=== PATIENT | female | born 1950 | race Caucasian/White ===

== ENCOUNTER → 2019-07-22 | Outpatient (CLI) | payer MEDICARE, OTHER ==
[~2019-07-22] MED LIST: AZIT-21 PO; BUPR-168 PO; CALC-80 PO; CARV12.53 PO; CEPH500C PO; CETI10TA17 PO; DILT180C PO; HYDR1TAB PO; LVT.05T PO; MELO-195 PO; MULT-608 PO; TERB250T42 PO; TRIA1CAP PO; VLS80C PO
[2019-07-22 10:54] LABS: ALBUMIN 4.3 GM/DL (3.2-4.5); BILIRUBIN,TOTAL 0.4 MG/DL (0.1-1.0); CALCIUM 9.9 MG/DL (8.5-10.1); CREATININE SERUM 0.96 MG/DL (0.60-1.30); POTASSIUM 4.4 MMOL/L (3.6-5.0); TOTAL PROTEIN 7.2 GM/DL (6.4-8.2)
== END ==
LOC: LAB FS 09:53
PROVIDERS: ATTEND Family Medicine
DX: I10 Essential (primary) hypertension (principal)
CPT/HCPCS: 36415; 80053; 80061

== ENCOUNTER 2019-08-01 18:56 | Emergency (ER) | payer MEDICARE, OTHER ==
[~2019-08-01] VITALS: Ht 154.9 cm; Wt 78.1 kg
--- OUTSIDE RECORDS SUMMARY | 2019-08-01 19:01 | XMS REPORT | Continuity of Care Document ---
Author Organization Unknown Address Unknown Phone Unavailable Allergies Active Description Code Type Severity Reaction Onset Reported/Identified Relationship to Patient Clinical Status Yes acetaminophen [id number] João g Allergy Unknown N/A 05/27/2010 Yes oxycodone HCl [id number] João g Allergy Unknown N/A 05/27/2010 Medications There is no data. Problems Date Dx Coded Attending Type Code Diagnosis Diagnosed By 07/26/2019 BOOKER TAO, JANINE Stapleton Ot I10 ESSENTIAL (PRIMARY) HYPERTENSION Procedures There is no data. Results Test Result Range TSH - 07/16/18 08:45 TSH 1.61 mIU/L 0.40-4.50 Encounters ACCT No. Visit Date/Time Discharge Status Pt. Type Provider Facility Loc./Unit Complaint [id number] 07/03/2019 13:30:00 07/03/2019 23:59: 59 [facility] [id number] 07/16/2018 08:15:00 Document Registration [id number] 07/22/2019 09:53:00 020 23:59:59 CLS Outpatient JANINE CELESTE MD [facility] LAB FS ESSENTIAL HTN
--- OUTSIDE RECORDS SUMMARY | 2019-08-01 19:01 | XMS REPORT ---
Author Author Josiane CELESTE Organization [facility] Address [address] [place] [address] Care Team Providers Care Pipe Finisher Name Role Phone CELESTENICOLETTE MckenzieJANINE Unavailable PROBLEMS Type Condition ICD9-CM Code IZW85-GY Code Onset Dates Condition S tatus SNOMED Code Problem Ulnar tunnel syndrome 354.2 Apr, 0 795809120 Problem Osteoarthritis of right knee M17.11 Dec, 0 0 236721285 Problem Ulnar tunnel syndrome G56.20 Apr, 0 636321589 Problem Osteoporosis 733.00 0 8686693 6 Problem Osteoarthritis of left knee M17.12 Dec, 0 487583654 Problem Hyponatremia E87.1 Jan, 0 8962 7008 Problem Osteoporosis M81.0 0 7119979 6 Problem Hypothyroidism E03.9 0 77188 008 Problem Hyponatremia 276.1 Jan, 0 8962 7008 Problem Essential hypertension I10 0 44109054 Problem Carpal tunnel syndrome 354.0 Apr, 0 76833967 Problem Carpal tunnel syndrome G56.00 Apr, 0 84788426 Problem Osteoarthritis of right knee 715.96 Dec, 0 0 494733030 Problem Osteoarthritis of left knee 715.96 Dec, 0 581616588 Problem Essential hypertension 401.9 0 60887479 Problem Hypothyroidism 244.9 0 57362 008 ALLERGIES Substance Reaction Event Type Date Status antibiotic ointment Unknown Non Drug Allergy Apr, Acti ve ENCOUNTERS Encounter Location Date Diagnosis [address] [address] June, [address] [address] Apr, Acute laryngitis J04.0 [facility] [address] [facility] [id number] [address] [address] Jan, [facility] [address] [facility] [id number] [address] [place] [address] Jan, [facility] [address] [facility] [id number] [address] [place] [address] Jan, [facility] [address] [facility] [id number] [address] [place] [address] Dec, [facility] [address] [facility] [id number] [address] [place] [address] Sep, IMMUNIZATIONS Vaccine Route Administration Date Status DEXAMETHASONE 4MG/ML (PER 1 MG) IM Intramuscular April 10, 2018 Administered DEPO MEDROL 80 MG/ML Unknown April 10, 2018 Administere d SOCIAL HISTORY Never Assessed REASON FOR VISIT Sore throat PLAN OF CARE VITAL SIGNS Height 172 in 2018-04-10 Weight 61.5 lbs 2018-04-10 Temperature 98.0 degrees Fahrenheit 2018-04-10 Heart Rate 85 bpm 2018-04-10 Oximetry 96 % 2018-04-10 BMI 1.46 kg/m2 2018-04-10 Blood pressure systolic 132 mmHg 2018-04-10 Blood pressure diastolic 70 mmHg 2018-04-10 MEDICATIONS Medication Instructions Dosage Frequency Start Date End Date Duration S tatus Prilosec Active Curcumin 95 500 MG as directed A ctive Alendronate Sodium 70 MG 1 tablet 30 day (s) Active Multivitamin - as directed Activ e Amoxicillin 875 MG Orally every 12 hrs 1 tablet 12h Apr, 10 day(s) Active Calcium 600 MG Orally Twice a day 1 tablet with meals 12h 30 day(s) Active Lutein 10 MG Orally Once a day 1 tablet with a meal 24h 30 day(s) Active Losartan Potassium 50 MG Orally Once a day 1 tablet 24h 30 day(s) Active Carvedilol 12.5 MG as directed A ctive ZyrTEC Active RESULTS No Results PROCEDURES Procedure Date Ordered Result Body Site DEPO MEDROL 80 MG/ML April 10, 2018 THER/PROPH/DIAG INJ, SC/IM April 10, 2018 DEXAMETHASONE 4MG/ML (PER 1 MG) April 10, 2018 [facility] VISIT ESTABLISHED PATIENT April 10, 2018 INSTRUCTIONS MEDICATIONS ADMINISTERED No Known Medications
--- OUTSIDE RECORDS SUMMARY | 2019-08-01 19:01 | XMS REPORT ---
Author Author Josiane CELESTE Organization [facility] Address [address] [place] [address] Care Team Providers Care Credit Office Manager Name Role Phone CELESTENICOLETTE MckenzieJANINE Unavailable PROBLEMS Type Condition ICD9-CM Code VWY78-NN Code Onset Dates Condition S tatus SNOMED Code Problem Ulnar tunnel syndrome 354.2 17 Apr, 2014 Activ e [id number] Problem Osteoarthritis of right knee M17.11 03 Dec, 201 0 Active 480235191 Problem Ulnar tunnel syndrome G56.20 17 Apr, 2014 Activ e 460299558 Problem Osteoarthritis of right knee 715.96 Dec, 0 Active 269294826 Problem Osteoarthritis of left knee M17.12 Dec, Active 820973799 Problem Hyponatremia 276.1 Jan, Active 8962 7008 Problem Carpal tunnel syndrome 354.0 Apr, Acti ve 39785389 Problem Osteoporosis 733.00 Active 2347949 6 Problem Essential (primary) hypertension I10 Active 82462381 Problem Essential hypertension 401.9 Active 59138697 Problem Seasonal affective disorder F33.8 Ac tive 082009823 Problem Osteoarthritis of left knee 715.96 Dec, Active 194962657 Problem Carpal tunnel syndrome G56.00 Apr, Acti ve 13596917 Problem Essential hypertension I10 Active 75289726 Problem Hyponatremia E87.1 Jan, Active 8962 7008 Problem Osteoporosis M81.0 Active 2169740 6 ALLERGIES No Information ENCOUNTERS Encounter Location Date Diagnosis [address] [place] [address] Feb, [address] [place] [address] Jan, Seasonal affective disorder F33.8 ; Irritant contact dermatitis, unspecified trigger L24.9 and Encounter for immunization Z23 [address] [place] [address] Jan, [facility] [place] [address] [place] [address] Oct, Viral warts, unspecified typ e B07.9 [facility] [address] [place] [address] Sep, Screening mammogram, encount er [facility] Z12.31 [facility] [address] [place] [address] Sep, [facility] [address] [place] [address] Aug, [facility] [address] [place] [address] Jul, [facility] [place] [address] [place] [address] Jul, Essential hypertension I10 ; Hypothyroidism E03.9 ; Osteoporosis M81.0 and [facility] [address] [place] [address] Jul, [facility] [place] [address] [place] [address] Jul, Hypothyroidism, unspecified E03.9 and Essential (primary) hypertension I10 [facility] [place] [address] [place] [address] Jul, Essential (primary) hyperten pantera I10 and Hypothyroidism, unspecified E03.9 [facility] [address] [place] [address] June, [facility] [address] [place] [address] June, Non-recurrent acute suppurat carol otitis media of right ear without spontaneous rupture of tympanic membrane H66.001 and Acute nasopharyngitis J00 [facility] [address] [place] [address] Apr, [address] [place] [address] Apr, Acute laryngitis J04.0 [facility] [address] [id number] [place] [address] Jan, [facility] [address] [id number] [place] [address] Jan, [facility] [id number] [place] [address] Jan, [facility] [address] [id number] [place] [address] Dec, [facility] [address] [id number] [place] [address] Sep, IMMUNIZATIONS No Known Immunizations SOCIAL HISTORY Never Assessed REASON FOR VISIT PLAN OF CARE VITAL SIGNS MEDICATIONS Medication Instructions Dosage Frequency Start Date End Date Duration S tatus Carvedilol 12.5 MG Orally 2 times a day 1 tablet 12h 90 days Active RESULTS No Results PROCEDURES No Known procedures INSTRUCTIONS MEDICATIONS ADMINISTERED No Known Medications MEDICAL (GENERAL) HISTORY Type Description Date Medical History hypertension Medical History cardiac arrhythmia Medical History osteoarthritis Medical History Mammo 2017 Medical History Colon. 09/08/2015 Medical History PCV 13 12/26/17
--- NOTE | 2019-08-01 19:23 | Diagnostic Imaging Report ---
INDICATION: Fall. Left ankle pain. History of recent foot surgery. FINDINGS: 3 views. Ankle mortise is in good alignment. Articulating surfaces are smooth. There are no fractures about the ankle. There is noted K-wire in the 1st metatarsal and bone screws in the 2nd metatarsal. IMPRESSION: No acute bony changes of the ankle. Dictated by: Dictated on workstation # [id number]
--- NOTE | 2019-08-01 19:24 | ED Lower Extremity ---
General Chief Complaint: Lower Extremity Stated Complaint: FALL,ANKLE PAIN Nursing Triage Note: FELL IN DRIVEWAY THEN 30 MIN. TO AN HOUR LATER STARTED HAVING PAIN. Nursing Sepsis Screen: No Definite Risk Exam Limitations: no limitations History of Present Illness Date Seen by Provider: Aug 01, 2019 Time Seen by Provider: 19:00 Initial Comments Patient is a 68-year-old female who presents with left ankle pain after slipping several hours prior to ED arrival. Patient denies ankle pain but states throughout the afternoon pain gradually progressed. Patient reports pain with weightbearing. No deformity or swelling noted on exam. Patient does have localized pain over medial malleolus. Patient also has abrasions to the left hand, right elbow and forehead. Denies loss of consciousness, headache or feeling days. Patient is not on anticoagulation therapy no neck pain. Last known tetanus is unknown but believed to be greater than 10 years. Onset: this morning Pain/Injury Location: left ankle Method of Injury: fell, twisted Modifying Factors: Improves With Immobilization Allergies and Home Medications Allergies Coded Allergies: Acetaminophen (Unverified Allergy, 05/27/10) oxycodone HCl (Unverified Allergy, 05/27/10) Home Medications Azithromycin 250 Mg Tab, 0 PO Z-LUIS ENRIQUE, (Reported) Bupropion Hcl 75 Mg Tab, 75 MG PO DAILY, (Reported) Calcium Carbonate/Vitamin D3 1 Each Tablet, 1 EACH PO BID, (Reported) Carvedilol 12.5 Mg Tablet, 1 EACH PO DAILY, (Reported) Cephalexin Monohydrate 500 Mg Capsule, 1 EACH PO TID, (Reported) Cetirizine Hcl 10 Mg Tablet, 10 MG PO DAILY, (Reported) Diltiazem Hcl 180 Mg Cap.sr.24h, 1 EACH PO DAILY, (Reported) Hydrocodone Bit/Acetaminophen 1 Each Tablet, 1-2 EACH PO Q4HR PRN, (Reported) Levothyroxine Sodium 50 Mcg Tablet, 1 EACH PO DAILY, (Reported) Meloxicam 15 Mg Tablet, 1 EACH PO DAILY, (Reported) Multivitamins 1 Tab Tablet, 1 TAB PO DAILY, (Reported) Terbinafine Hcl 250 Mg Tablet, 1 TAB PO DAILY, (Reported) Triamterene/Hctz 1 Each Capsule, 1 EACH PO DAILY, (Reported) Valsartan 80 Mg Tab, 160 MG PO DAILY, (Reported) Patient Home Medication List Home Medication List Reviewed: Yes Review of Systems Constitutional: see HPI EENTM: see HPI Respiratory: see HPI Cardiovascular: see HPI Genitourinary: see HPI Musculoskeletal: see HPI Skin: see HPI Past Lkyfaxh-Igtnsc-Rftsit Hx Patient Social History Recent Foreign Travel: No Contact w/Someone Who Travel: No Recent Infectious Disease Expo: No Recent Hopitalizations: No Physical Abuse: No Sexual Abuse: No Mistreated: No Fear: No Seasonal Allergies Seasonal Allergies: No Past Medical History Surgeries: Yes (KNEES, RIGHT SHOULDER AND FEET) Respiratory: No Cardiac: Yes Hypertension Neurological: No Reproductive Disorders: No Sexually Transmitted Disease: No HIV/AIDS: No Genitourinary: No Gastrointestinal: No Musculoskeletal: No Endocrine: No HEENT: No Cancer: No Psychosocial: No Blood Disorders: No Physical Exam Vital Signs Vital Signs - First Documented 08/01/19 19:00 Temp 36.3 Pulse 84 Resp 18 B/P (MAP) 149/89 (109) Pulse Ox 97 O2 Delivery Room Air Capillary Refill : Less Than 3 Seconds Height, Weight, BMI Height: '" Weight: lbs. oz. kg; 32.00 BMI Method: General Appearance: WD/WN, no apparent distress HEENT: PERRL/EOMI, normal ENT inspection, pharynx normal, other (left forehead, punctate laceration, wound edges approximated, wound is clear.) Neck: full range of motion, supple, normal inspection Cardiovascular: regular rate, rhythm Respiratory: chest non-tender Back: normal inspection Ankles: left ankle limited range of motion, left ankle soft tissue tenderness, left ankle swelling Neurologic/Tendon: normal sensation Neurologic/Psychiatric: stump blower II-XII nml as tested, no motor/sensory deficits, oriented x 3 Skin: other (abrasions to left hand, right elbow without bony tenderness try bruising or swelling.) Progress/Results/Core Measures Results/Orders My Orders Orders - AGUILA MENENDEZ DO Ankle 3 View Left (08/01/19 19:03) Dipht,Pertuss(Acell),Tet Adult (Boostrix (08/01/19 19:30) Vital Signs/I&O 08/01/19 19:00 Temp 36.3 Pulse 84 Resp 18 B/P (MAP) 149/89 (109) Pulse Ox 97 O2 Delivery Room Air Blood Pressure Mean: 109 Departure Impression Primary Impression: Left ankle sprain Disposition: 01 HOME, SELF-CARE Condition: Stable Departure-Patient Inst. Referrals: JANINE CELESTE MD (PCP/Family) Primary Care Physician Patient Instructions: Ankle Sprain Add. Discharge Instructions: Please wear ankle brace and use crutches or walker as needed for assistance with ambulation. Take Tylenol for pain and tramadol as needed for additional relief. Follow-up with your PCP for reevaluation in 3-5 days if ankles pain persists. All discharge instructions reviewed with patient and/or family. Voiced understanding. Scripts Tramadol HCl (Tramadol HCl) 50 Mg Tablet 50 MG PO Q6H PRN for PAIN for 3 Days, #14 TAB 0 Refills Prov: AGUILA MENENDEZ DO 08/01/19 AGUILA MENENDEZ DO Aug 01, 2019 19:24
[2019-08-01] MEDS ORDERED: TETANUS,DIPTH,PERTUSS P/F (BOOSTRIX) 0.5 ML VIAL IM ONE (19:30)
[2019-08-01] MEDS ORDERED: TRM50T PO (19:31)
[2019-08-01 19:39] VITALS: BP 149/89
== END 2019-08-01 19:36 | disposition home or self-care (01) ==
LOC: EDUNIT# 18:56 → ER FS 18:57
DX: S93.402A Sprain of unspecified ligament of left ankle, initial encounter (principal); S01.81XA Laceration without foreign body of other part of head, initial encounter; S50.311A Abrasion of right elbow, initial encounter; S60.512A Abrasion of left hand, initial encounter; I10 Essential (primary) hypertension; Z88.6 Allergy status to analgesic agent; Z23 Encounter for immunization; Z88.5 Allergy status to narcotic agent; W01.0XXA Fall on same level from slipping, tripping and stumbling without subsequent striking against object, initial encounter; X50.1XXA Overexertion from prolonged static or awkward postures, initial encounter
CPT/HCPCS: 29515; 73610; 99284; L4350; 90715

== ENCOUNTER 2019-12-22 17:10 | Emergency (ER) | payer MEDICARE, OTHER ==
[~2019-12-22] VITALS: Ht 154.9 cm; Wt 75.3 kg
[~2019-12-22 17:10] MED LIST changes: +TRM50T PO
--- NOTE | 2019-12-22 17:34 | ED Fall/Injury ---
General Chief Complaint: Upper Extremity Stated Complaint: FALL Source: patient Exam Limitations: no limitations History of Present Illness Date Seen by Provider: Dec 22, 2019 Time Seen by Provider: 17:15 Initial Comments Patient is a 69-year-old female who presents to the emergency room today after a mechanical trip and fall. Patient states that she was walking her dog when she bent over to olive picker a branch in her driveway, the dog took off and yanked her forward and she fell onto her face, right hand and injured her left shoulder. Patient states that she knocked out 2 of her teeth. She has pain in the left shoulder with difficulty with range of motion both active and passive. She also has pain in the right hand middle finger with significant ecchymosis and swelling over the metacarpophalangeal joint. She is right-hand dominant. She denies any head injury/loss of consciousness. She has some pain in her mouth in both her upper and lower lip. Denies any chest pain denies shortness of breath. Denies abdominal pain. Denies any lower extremity discomfort or pain. All other review of systems reviewed and negative except as stated above. Occurred: this afternoon Severity: moderate Injuries/Pain Location: face, upper extremity Context: tripped Loss of Consciousness: no loss of consciousness Associated Symptoms (Fall): Denies Symptoms Allergies and Home Medications Allergies Coded Allergies: No Known Drug Allergies (Unverified , 12/22/19) Home Medications Azithromycin 250 Mg Tab, 0 PO Z-LUIS ENRIQUE, (Reported) Bupropion Hcl 75 Mg Tab, 75 MG PO DAILY, (Reported) Calcium Carbonate/Vitamin D3 1 Each Tablet, 1 EACH PO BID, (Reported) Carvedilol 12.5 Mg Tablet, 1 EACH PO DAILY, (Reported) Cephalexin Monohydrate 500 Mg Capsule, 1 EACH PO TID, (Reported) Cetirizine Hcl 10 Mg Tablet, 10 MG PO DAILY, (Reported) Diltiazem Hcl 180 Mg Cap.sr.24h, 1 EACH PO DAILY, (Reported) Hydrocodone Bit/Acetaminophen 1 Each Tablet, 1-2 EACH PO Q4HR PRN, (Reported) Hydrocodone/Acetaminophen 1 Each Tablet, 1 EACH PO Q6H PRN for PAIN-MODERATE (5- 7) Prescribed by: OTONIEL HUITRON on 12/22/191933 Levothyroxine Sodium 50 Mcg Tablet, 1 EACH PO DAILY, (Reported) Meloxicam 15 Mg Tablet, 1 EACH PO DAILY, (Reported) Multivitamins 1 Tab Tablet, 1 TAB PO DAILY, (Reported) Terbinafine Hcl 250 Mg Tablet, 1 TAB PO DAILY, (Reported) Tramadol HCl 50 Mg Tablet, 50 MG PO Q6H PRN for PAIN Prescribed by: AGUILA MENENDEZ on 08/01/191930 Triamterene/Hctz 1 Each Capsule, 1 EACH PO DAILY, (Reported) Valsartan 80 Mg Tab, 160 MG PO DAILY, (Reported) Patient Home Medication List Home Medication List Reviewed: Yes Review of Systems Review of Systems Constitutional: no symptoms reported Eyes: No Symptoms Reported Ears, Nose, Mouth, Throat: nose pain, mouth swelling, loose teeth Respiratory: no symptoms reported Cardiovascular: no symptoms reported Gastrointestinal: no symptoms reported Genitourinary: no symptoms reported Musculoskeletal: joint pain (Right hand, left shoulder) Skin: other (Abrasions to the face) All Other Systems Reviewed Negative Unless Noted: Yes Past Softyds-Qlorvz-Ipvkac Hx Patient Social History Alcohol Use: Denies Use Recreational Drug Use: No Smoking Status: Never a Smoker 2nd Hand Smoke Exposure: No Recent Foreign Travel: No Contact w/Someone Who Travel: No Recent Hopitalizations: No Physical Abuse: No Sexual Abuse: No Mistreated: No Fear: No Seasonal Allergies Seasonal Allergies: No Past Medical History Surgeries: Yes (Bilat TKR, RIGHT SHOULDER AND FEET) Orthopedic Respiratory: No Cardiac: Yes Hypertension Neurological: No Reproductive Disorders: No Sexually Transmitted Disease: No HIV/AIDS: No Genitourinary: No Gastrointestinal: No Musculoskeletal: No Endocrine: No HEENT: No Cancer: No Psychosocial: No Integumentary: No Blood Disorders: No Physical Exam Vital Signs Vital Signs - First Documented 12/22/19 17:20 Temp 36.4 Pulse 86 Resp 18 B/P (MAP) 184/94 (124) Pulse Ox 97 O2 Delivery Room Air Capillary Refill : Height, Weight, BMI Height: '" Weight: lbs. oz. kg; 32.00 BMI Method: General Appearance: WD/WN, no apparent distress HEENT: PERRL/EOMI, TMs normal, other (Patient has an abrasion over the bridge of her nose where her glasses sit, she has significant contusion and ecchymosis of her top lip as well as her bottom lip directly in the center of both. She has traumatic avulsion of her left central incisor and left lateral incisor. She has a fracture of the right central incisor. No discrete lacerations of the mouth) Neck: non-tender, full range of motion, normal inspection Cardiovascular: regular rate, rhythm Respiratory: lungs clear, normal breath sounds, no respiratory distress Gastrointestinal: non tender, soft Extremities: no pedal edema, normal capillary refill, other (Patient has significant ecchymosis and swelling over the middle finger of her right hand with significant swelling most notably over the metacarpophalangeal joint on the dorsum of the hand. She also has pain with palpation over the bony left shoulder, no ecchymosis or abrasions are noted.; Patient also complains of some discomfort with manipulation of the middle finger of the left hand although there is no swelling, abrasion, erythema or otherwise obvious injury to the left hand) Neurologic/Psychiatric: no motor/sensory deficits, alert, normal mood/affect, oriented x 3 Skin: normal color, warm/dry Procedures/Interventions Progress 1% plain lidocaine used to do a digital block of the middle finger of the right hand. Also approximately 3 cc was used to perform a hematoma block over the metacarpophalangeal joint. After good anesthesia gentle traction was maintained on the finger with pressure on the volar aspect of the fracture fragment of the proximal phalanx. Progress/Results/Core Measures Results/Orders My Orders Orders - OTONIEL HUITRON MD Hand 3 View Right (12/22/19 17:23) Shoulder 3 View Left (12/22/19 17:23) Hydrocodone/Apap 10/325 Tablet (Lortab 1 (12/22/19 18:00) Lidocaine 1% Inj 20 Ml (Xylocaine 1% Inj (12/22/19 18:00) Hand 2 View Right (12/22/19 18:52) Medications Given in ED Current Medications Medications Dose Ordered Sig/Fabrice Route Start Time Stop Time Status Last Admin Dose Admin Acetaminophen/ Hydrocodone Bitart 1 ea ONCE ONCE PO 12/22/19 18:00 12/22/19 18:01 DC 12/22/19 18:01 1 EA Lidocaine HCl 20 ml ONCE ONCE INJ 12/22/19 18:00 12/22/19 18:01 DC 12/22/19 18:01 20 ML Vital Signs/I&O 12/22/19 17:20 Temp 36.4 Pulse 86 Resp 18 B/P (MAP) 184/94 (124) Pulse Ox 97 O2 Delivery Room Air Progress Progress Note : Time: 17:36 Progress Note 69-year-old female presents to the emergency room with a chief complaint of mechanical trip and fall, facial injury, left shoulder injury, right hand injury. Patient's last tetanus shot was within the year. Evaluation today includes physical exam with x-rays of the right hand and left shoulder. Diagnostic Imaging Diagonstic Imaging: Xray Comments [facility] [place] [place] NAME: CHAVA PEGUERO [facility] REC#: [id number] PT STATUS: REG ER : 1950 PHYSICIAN: OTONIEL HUITRON MD ADMIT DATE: 12/22/19/ER FS Draft Date of Exam:12/22/19 HAND 3 VIEW RIGHT INDICATION: fall/ injury TECHNIQUE: Four views of the right hand. CORRELATION STUDY: None. FINDINGS: Predominate transversely oriented fracture at the proximal aspect of the proximal phalanx middle finger is present. The base of the proximal phalanx is displaced anteriorly in regards to the 3rd metacarpal head. Slight dorsal angulation of the main fracture fragment is noted. Remaining osseous structures otherwise intact. Mild degenerative changes through the interphalangeal joint. Advanced degenerative changes of the wrist, particularly at the 1st carpometacarpal lesion. Soft tissue edema over the distal hand and 3rd digit. IMPRESSION: Displaced and mildly angulated fracture at the base of the proximal phalanx middle finger. There is also anterior dislocation at the 3rd metacarpal phalangeal joint. Dictated on workstation # [id number] Dict: 12/22/19 1749 Trans: 12/22/19 1807 [facility] [id number] Interpreted by: CHARLES FLORES DO Electronically signed by: [facility] [place] [place] NAME: CHAVA PEGUERO [facility] REC#: [id number] PT STATUS: REG ER : 1950 PHYSICIAN: OTONIEL HUITRON MD ADMIT DATE: 11/15/20/ER FS Draft Date of Exam:12/22/19 SHOULDER 3 VIEW LEFT INDICATION: fall/ injury, decreased range of motion. TECHNIQUE: Three views of the left shoulder. CORRELATION STUDY: None. FINDINGS: The glenohumeral and acromioclavicular alignment are maintained and unremarkable. There is no evidence for acute fracture or dislocation. Some generalized bony demineralization. IMPRESSION: Negative for acute bony abnormality about the shoulder. Dictated on workstation # [id number] Dict: 12/22/19 1751 Trans: 12/22/19 1808 [facility] [id number] Interpreted by: CHARLES FLORES DO Electronically signed by: Departure Communication (Admissions) Time/Spoke to Consulting Phy: 19:[address] Serrano at [facility]. He recommended calling the office in the morning and speaking with Rosalia who is one of the nurses in his clinic. He gave me his phone number and will schedule the patient to be seen within the next day. Impression Primary Impression: Avulsion of multiple teeth due to trauma Qualified Codes: S03.2XXA - Dislocation of tooth, initial encounter Additional Impressions: Abrasion of face Qualified Codes: S00.81XA - Abrasion of other part of head, initial encounter Closed fracture dislocation of metacarpophalangeal (MCP) joint Shoulder contusion Qualified Codes: S40.012A - Contusion of left shoulder, initial encounter Disposition: 01 HOME, SELF-CARE Condition: Stable Departure-Patient Inst. Referrals: JANINE CELESTE MD (PCP/Family) Primary Care Physician Patient Instructions: Contusion (DC), Fractured Tooth (DC), Hand Fracture Add. Discharge Instructions: Keep the finger splint on and in place until you have follow-up with the hand surgeon. Call Dr. Serrano tomorrow morning. Ask to speak with ROSALIA. The phone number for the clinic is [phone] I have given you a prescription for some hydrocodone. Take this as needed every 6 hours for pain, alternaate with Ibuprofen. Ice your hand and shoulder 20 minutes at a time 4 times a day for swelling and discomfort. Return to the Emergency Department for any further worsening or concerns. Scripts Hydrocodone/Acetaminophen (Hydrocodone-Acetamin 5-325 mg) 1 Each Tablet 1 EACH PO Q6H PRN for PAIN-MODERATE (5-7), #15 TAB Prov: OTONIEL HUITRON MD 12/22/19 OTONIEL HUITRON MD Dec 22, 2019 17:34
[2019-12-22] MEDS ORDERED: LIDOCAINE 1% INJ 20 ML 20 ML VIAL INJ ONE (18:00)
[2019-12-22] MEDS ORDERED: HYDROcodone/APAP 10 MG/325 MG (LORTAB) TAB PO ONE (18:00)
--- NOTE | 2019-12-22 18:08 | Diagnostic Imaging Report ---
INDICATION: fall/ injury, decreased range of motion. TECHNIQUE: Three views of the left shoulder. CORRELATION STUDY: None. FINDINGS: The glenohumeral and acromioclavicular alignment are maintained and unremarkable. There is no evidence for acute fracture or dislocation. Some generalized bony demineralization. IMPRESSION: Negative for acute bony abnormality about the shoulder. Dictated by: Dictated on workstation # [id number]
--- NOTE | 2019-12-22 18:08 | Diagnostic Imaging Report ---
INDICATION: fall/ injury TECHNIQUE: Four views of the right hand. CORRELATION STUDY: None. FINDINGS: Predominate transversely oriented fracture at the proximal aspect of the proximal phalanx middle finger is present. The base of the proximal phalanx is displaced anteriorly in regards to the 3rd metacarpal head. Slight dorsal angulation of the main fracture fragment is noted. Remaining osseous structures otherwise intact. Mild degenerative changes through the interphalangeal joint. Advanced degenerative changes of the wrist, particularly at the 1st carpometacarpal lesion. Soft tissue edema over the distal hand and 3rd digit. IMPRESSION: Displaced and mildly angulated fracture at the base of the proximal phalanx middle finger. There is also anterior dislocation at the 3rd metacarpal phalangeal joint. Dictated by: Dictated on workstation # [id number]
--- NOTE | 2019-12-22 19:21 | Diagnostic Imaging Report ---
INDICATION: post reduction attempt TECHNIQUE: Three views of the right hand, 6:55 p.m. CORRELATION STUDY: 12/22/2019. FINDINGS: Transverse linear fracture at the base of the proximal phalanx 3rd finger is present. Alignment appears to be near-anatomic with reduction decreased. There is however continued dislocation at the MCP joint. The base of the proximal phalanx is displaced anterior to the metacarpal head. Associated soft tissue edema persists. IMPRESSION: 1. Fracture at the base the proximal phalanx appears to be near-anatomic in alignment post reduction. 2. Continued dislocation at the 3rd metacarpophalangeal joint. Dictated by: Dictated on workstation # [id number]
[2019-12-22] MEDS ORDERED: ACHD5005 PO (19:34)
[2019-12-22] MEDS ORDERED: RX-HYDROCODONE/APAP 5/325 MG #4 TAB PK PO PRN (19:45)
[2019-12-22 20:01] VITALS: BP 174/88
== END 2019-12-22 20:01 | disposition home or self-care (01) ==
LOC: EDUNIT# 17:10 → ER FS 17:11
DX: S62.312A Displaced fracture of base of third metacarpal bone, right hand, initial encounter for closed fracture (principal); S00.531A Contusion of lip, initial encounter; S40.012A Contusion of left shoulder, initial encounter; S00.31XA Abrasion of nose, initial encounter; S03.2XXA Dislocation of tooth, initial encounter; I10 Essential (primary) hypertension; W01.0XXA Fall on same level from slipping, tripping and stumbling without subsequent striking against object, initial encounter
CPT/HCPCS: 73030; 73120; 73130

== ENCOUNTER → 2019-12-26 | Outpatient (CLI) | payer MEDICARE, OTHER ==
[~2019-12-26] MED LIST changes: +ACHD5005 PO
--- NOTE | 2019-12-26 16:41 | Diagnostic Imaging Report ---
EXAMINATION: Left shoulder radiograph, single axillary view. COMPARISON: December 22, 2019. HISTORY: 69-year-old female, left shoulder pain. History of fall. FINDINGS: The humeral head is normally positioned relative to the glenoid. There is no radiographically visible os acromiale. There is no identified acute fracture. IMPRESSION: 1. Unremarkable single axillary view of the left shoulder. Dictated by: Dictated on workstation # [id number]
== END ==
LOC: RAD FS 14:15
PROVIDERS: ATTEND Nurse Practitioner
DX: M19.012 Primary osteoarthritis, left shoulder (principal); Z91.81 History of falling
CPT/HCPCS: 73020

== ENCOUNTER → 2020-01-17 | Outpatient (CLI) | payer MEDICARE, OTHER ==
[2020-01-17 15:38] LABS: ALKALINE PHOSPHATASE 76 U/L (40-136); BILIRUBIN,TOTAL 0.4 MG/DL (0.1-1.0); BUN/CREATININE RATIO 21; CALCIUM 9.5 MG/DL (8.5-10.1); CARBON DIOXIDE 24 MMOL/L (21-32); CHLORIDE 100 MMOL/L (98-107); CREATININE SERUM 0.77 MG/DL (0.60-1.30); GFR ESTIMATED > 60; GLUCOSE 85 MG/DL (70-105); POTASSIUM 4.1 MMOL/L (3.6-5.0); SODIUM 137 MMOL/L (135-145)
[2020-01-17 15:39] LABS: ALANINE AMINOTRANSFERASE 22 U/L (0-55); ALBUMIN 4.4 GM/DL (3.2-4.5); TOTAL PROTEIN 6.9 GM/DL (6.4-8.2)
[2020-01-18 16:00] LABS: TRIGLYCERIDES 135 MG/DL (<150); VLDL CHOLESTEROL 27 MG/DL (5-40)
[2020-01-18 16:04] LABS: CHOLESTEROL 213 MG/DL (< 200)
[2020-01-18 16:05] LABS: HDL CHOLESTEROL 72 MG/DL (40-60)
== END ==
LOC: LAB FS 14:46
PROVIDERS: ATTEND Family Medicine
DX: I10 Essential (primary) hypertension (principal)
CPT/HCPCS: 36415; 80053; 80061

== ENCOUNTER → 2020-02-10 | Outpatient (CLI) | payer MEDICARE, OTHER ==
--- NOTE | 2020-02-10 15:21 | Diagnostic Imaging Report ---
INDICATION: Followup fracture. COMPARISON: 12/22/2019. FINDINGS: Multiple radiographic views of the right third digit were obtained. In the interim, there has been interval placement of two Benito wires through the proximal margins of the third proximal phalanx bridging the previously described transverse fracture line. There is appropriate alignment of the fracture fragments. Note is made, however, of persistent anterior dislocation of the proximal phalanx in respect to the third metacarpal. No unexpected radiopaque foreign bodies are seen. No new acute osseous abnormality is identified. IMPRESSION: 1. Interval post surgical changes to the third proximal phalanx as described above. 2. 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 Dictated by: Dictated on workstation # [id number]
== END ==
LOC: RAD FS 14:39
DX: S62.612D Displaced fracture of proximal phalanx of right middle finger, subsequent encounter for fracture with routine healing (principal); X58.XXXD Exposure to other specified factors, subsequent encounter
CPT/HCPCS: 73140

== ENCOUNTER → 2020-07-14 | Outpatient (CLI) | payer MEDICARE, OTHER ==
[2020-07-14 11:50] LABS: ALKALINE PHOSPHATASE 80 U/L (40-136); BILIRUBIN,TOTAL 0.3 MG/DL (0.1-1.0); BUN/CREATININE RATIO 32; CALCIUM 9.3 MG/DL (8.5-10.1); CARBON DIOXIDE 24 MMOL/L (21-32); CHLORIDE 98 MMOL/L (98-107); CREATININE SERUM 0.92 MG/DL (0.60-1.30); GFR ESTIMATED > 60; GLUCOSE 87 MG/DL (70-105); SODIUM 136 MMOL/L (135-145)
[2020-07-14 11:51] LABS: ALANINE AMINOTRANSFERASE 14 U/L (0-55); ALBUMIN 4.3 GM/DL (3.2-4.5); TOTAL PROTEIN 6.6 GM/DL (6.4-8.2)
[2020-07-14 15:02] LABS: TRIGLYCERIDES 99 MG/DL (<150); VLDL CHOLESTEROL 20 MG/DL (5-40)
[2020-07-14 15:07] LABS: CHOLESTEROL 196 MG/DL (< 200)
[2020-07-14 15:08] LABS: HDL CHOLESTEROL 97 MG/DL (40-60)
== END ==
LOC: LAB FS 10:38
PROVIDERS: ATTEND Family Medicine
DX: I10 Essential (primary) hypertension (principal)
CPT/HCPCS: 36415; 80053; 80061

== ENCOUNTER → 2020-12-21 | Outpatient (CLI) | payer MEDICARE, OTHER ==
--- NOTE | 2020-12-21 14:03 | Diagnostic Imaging Report ---
INDICATION: Right foot pain. COMPARISON: 05/31/2010. FINDINGS: Three radiographic views of the right foot were obtained. Post surgical changes to the 2nd and 3rd metatarsals are noted. Metallic screws are identified distally. No other unexpected radiopaque foreign bodies are seen. No acute fracture or dislocation of the right foot is identified. The osseous structures are intact. The joint spaces are maintained. IMPRESSION: No acute fracture or dislocation of the right foot. Dictated by: Dictated on workstation # [id number]
== END ==
LOC: RAD FS 12:00
PROVIDERS: ATTEND Registered Nurse Emergency
DX: M79.671 Pain in right foot (principal)
CPT/HCPCS: 73630

== ENCOUNTER → 2021-01-26 | Outpatient (CLI) | payer MEDICARE, OTHER ==
[2021-01-26 14:17] LABS: BILIRUBIN,URINE NEGATIVE (NEGATIVE); CLARITY,URINE CLEAR; COLOR,URINE YELLOW; GLUCOSE, URINE (UA) NEGATIVE (NEGATIVE); KETONES,URINE TRACE (NEGATIVE); LEUKOCYTE ESTERASE ,URINE NEGATIVE (NEGATIVE); NITRITE,URINE NEGATIVE (NEGATIVE); PROTEIN,URINE NEGATIVE (NEGATIVE)
[2021-01-26 14:17] LABS: HEMATOCRIT 37 % (35-52); HEMOGLOBIN 12.1 g/dL (11.5-16.0); MEAN CORPUSCULAR HEMOGLOBIN 29 pg (25-34); MEAN CORPUSCULAR HGB CONC 33 g/dL (32-36); MEAN CORPUSCULAR VOLUME 89 fL (80-99); MEAN PLATELET VOLUME 9.1 fL (9.0-12.2); PLATELET COUNT 283 10^3/uL (130-400); WHITE BLOOD COUNT 5.6 10^3/uL (4.3-11.0)
[2021-01-26 14:18] LABS: BASOPHILS # (AUTO) 0.1 10^3/uL (0.0-0.1); BASOPHILS % (AUTO) 1 % (0-10); EOSINOPHILS # (AUTO) 0.1 10^3/uL (0.0-0.3); EOSINOPHILS % (AUTO) 2 % (0-10); LYMPHOCYTES # (AUTO) 1.1 X 10^3 (1.0-4.0); LYMPHOCYTES % (AUTO) 20 % (12-44); MONOCYTES # (AUTO) 0.5 X 10^3 (0.0-1.0); MONOCYTES % (AUTO) 9 % (0-12); NEUTROPHILS # (AUTO) 3.8 X 10^3 (1.8-7.8); NEUTROPHILS % (AUTO) 67 % (42-75)
[2021-01-26 14:37] LABS: BACTERIA,URINE NEGATIVE /HPF; SQUAMOUS EPITHELIAL CELL,UR RARE /HPF; WBC,URINE RARE /HPF
[2021-01-26 14:38] LABS: HYALINE CASTS, URINE RARE /LPF
[2021-01-26 14:55] LABS: BILIRUBIN,TOTAL 0.4 MG/DL (0.1-1.0); CALCIUM 9.1 MG/DL (8.5-10.1); CREATININE SERUM 1.29 MG/DL (0.60-1.30); MAGNESIUM 1.7 MG/DL (1.6-2.4); POTASSIUM 4.5 MMOL/L (3.6-5.0); TOTAL PROTEIN 6.9 GM/DL (6.4-8.2)
[2021-01-26 14:56] LABS: ALBUMIN 4.2 GM/DL (3.2-4.5)
== END ==
LOC: LAB FS 13:47
DX: Z51.81 Encounter for therapeutic drug level monitoring (principal)
CPT/HCPCS: 36415; 80053; 81000; 83735; 85025

== ENCOUNTER → 2021-03-23 | Outpatient (CLI) | payer MEDICARE, OTHER ==
[2021-03-23 11:07] LABS: BASOPHILS % (AUTO) 1 % (0-10); EOSINOPHILS # (AUTO) 0.2 10^3/uL (0.0-0.3); EOSINOPHILS % (AUTO) 4 % (0-10); HEMATOCRIT 35 % (35-52); HEMOGLOBIN 11.6 g/dL (11.5-16.0); LYMPHOCYTES # (AUTO) 1.1 10^3/uL (1.0-4.0); LYMPHOCYTES % (AUTO) 23 % (12-44); MEAN CORPUSCULAR HEMOGLOBIN 29 pg (25-34); MEAN CORPUSCULAR HGB CONC 33 g/dL (32-36); MEAN CORPUSCULAR VOLUME 88 fL (80-99); MEAN PLATELET VOLUME 9.2 fL (9.0-12.2); MONOCYTES # (AUTO) 0.6 10^3/uL (0.0-1.0); MONOCYTES % (AUTO) 12 % (0-12); NEUTROPHILS # (AUTO) 2.9 10^3/uL (1.8-7.8); NEUTROPHILS % (AUTO) 60 % (42-75); PLATELET COUNT 258 10^3/uL (130-400); WHITE BLOOD COUNT 4.8 10^3/uL (4.3-11.0)
[2021-03-23 11:21] LABS: BILIRUBIN,URINE NEGATIVE (NEGATIVE); CLARITY,URINE CLEAR; COLOR,URINE YELLOW; GLUCOSE, URINE (UA) NEGATIVE (NEGATIVE); KETONES,URINE TRACE (NEGATIVE); LEUKOCYTE ESTERASE ,URINE NEGATIVE (NEGATIVE); NITRITE,URINE NEGATIVE (NEGATIVE); PROTEIN,URINE NEGATIVE (NEGATIVE)
[2021-03-23 12:03] LABS: BACTERIA,URINE NEGATIVE /HPF; HYALINE CASTS, URINE 0-2 /LPF; SQUAMOUS EPITHELIAL CELL,UR 0-2 /HPF; WBC,URINE RARE /HPF
[2021-03-23 12:34] LABS: POTASSIUM 4.7 MMOL/L (3.6-5.0)
[2021-03-23 12:35] LABS: ALBUMIN 4.5 GM/DL (3.2-4.5); BILIRUBIN,TOTAL 0.4 MG/DL (0.1-1.0); CALCIUM 9.4 MG/DL (8.5-10.1); CREATININE SERUM 1.37 MG/DL (0.60-1.30); MAGNESIUM 1.8 MG/DL (1.6-2.4); TOTAL PROTEIN 7.1 GM/DL (6.4-8.2)
== END ==
LOC: LAB FS 10:32
PROVIDERS: ATTEND Dermatology Pediatric Dermatology
DX: Z51.81 Encounter for therapeutic drug level monitoring (principal)
CPT/HCPCS: 36415; 80053; 81000; 83735; 85025

== ENCOUNTER → 2021-06-23 | Outpatient (CLI) | payer MEDICARE, OTHER ==
[2021-06-23 11:18] LABS: BILIRUBIN,URINE NEGATIVE (NEGATIVE); CLARITY,URINE CLEAR; COLOR,URINE YELLOW; GLUCOSE, URINE (UA) NEGATIVE (NEGATIVE); KETONES,URINE NEGATIVE (NEGATIVE); LEUKOCYTE ESTERASE ,URINE NEGATIVE (NEGATIVE); NITRITE,URINE NEGATIVE (NEGATIVE); PROTEIN,URINE NEGATIVE (NEGATIVE)
[2021-06-23 11:20] LABS: BASOPHILS # (AUTO) 0.1 10^3/uL (0.0-0.1); BASOPHILS % (AUTO) 1 % (0-10); EOSINOPHILS # (AUTO) 0.4 10^3/uL (0.0-0.3); EOSINOPHILS % (AUTO) 8 % (0-10); HEMATOCRIT 32 % (35-52); HEMOGLOBIN 10.5 g/dL (11.5-16.0); LYMPHOCYTES # (AUTO) 0.8 10^3/uL (1.0-4.0); LYMPHOCYTES % (AUTO) 16 % (12-44); MEAN CORPUSCULAR HEMOGLOBIN 30 pg (25-34); MEAN CORPUSCULAR HGB CONC 32 g/dL (32-36); MEAN CORPUSCULAR VOLUME 92 fL (80-99); MONOCYTES # (AUTO) 0.6 10^3/uL (0.0-1.0); MONOCYTES % (AUTO) 12 % (0-12); NEUTROPHILS # (AUTO) 3.3 10^3/uL (1.8-7.8); NEUTROPHILS % (AUTO) 64 % (42-75); PLATELET COUNT 263 10^3/uL (130-400); WHITE BLOOD COUNT 5.1 10^3/uL (4.3-11.0)
[2021-06-23 11:26] LABS: BACTERIA,URINE NEGATIVE /HPF; SQUAMOUS EPITHELIAL CELL,UR 0-2 /HPF; WBC,URINE 0-2 /HPF
[2021-06-23 11:40] LABS: BILIRUBIN,TOTAL 0.4 MG/DL (0.1-1.0); CALCIUM 9.6 MG/DL (8.5-10.1); CREATININE SERUM 1.29 MG/DL (0.60-1.30); MAGNESIUM 2.2 MG/DL (1.6-2.4); POTASSIUM 4.4 MMOL/L (3.6-5.0)
[2021-06-23 11:41] LABS: ALBUMIN 4.4 GM/DL (3.2-4.5); TOTAL PROTEIN 7.2 GM/DL (6.4-8.2)
== END ==
LOC: LAB FS 10:34
PROVIDERS: ATTEND Dermatology Pediatric Dermatology
DX: Z51.81 Encounter for therapeutic drug level monitoring (principal)
CPT/HCPCS: 36415; 80053; 81000; 83735; 85025

== ENCOUNTER → 2021-06-23 | Outpatient (CLI) | payer MEDICARE, OTHER ==
[2021-06-23 15:14] LABS: CHOLESTEROL 209 MG/DL (< 200); HDL CHOLESTEROL 75 MG/DL (40-60); TRIGLYCERIDES 70 MG/DL (<150); VLDL CHOLESTEROL 14 MG/DL (5-40)
== END ==
LOC: LAB FS 10:42
PROVIDERS: ATTEND Family Medicine
DX: Z00.00 Encounter for general adult medical examination without abnormal findings (principal); I10 Essential (primary) hypertension; F41.8 Other specified anxiety disorders
CPT/HCPCS: 36415; 80061